=== PATIENT | female | born 1935 | race African-American/Black ===

== ENCOUNTER 2018-10-14 11:30 | Observation (INO) ==
[2018-10-14 14:16] LABS: Apearance,Urine CLEAR (Clear); Bilirubin,Urine Negative (Negative); Blood, Urine Negative (Negative); Glucose,Urine (UA) Negative (Negative); Ketones,Urine Negative (Negative); Mucus,Urine Occasional /LPF (Occasional); Nitrite,Urine Negative (Negative); Protein,Urine Negative; RBC,Urine 1 /HPF (0-4); Squamous Epithelial Cell,Urine Occasional /HPF (0-10); Urine Color Straw (Yellow); Urine Specific Gravity 1.011 (1.001-1.035); Urine Urobilinogen < 2.0 EU/DL (0.2-1.0)
[2018-10-14 14:33] LABS: Basophils % 0.3 % (0.0-0.8); Eosinophils # 0.1 10*3/uL (0.0-0.87); Hemoglobin 13.7 GM/DL (12.0-16.0); Immature Granulocytes % 0.3 %; Immature Granulocytes Absolute 0.02 #; Lymphocytes # 1.7 10*3/uL (1.4-4.0); Lymphocytes % 27.6 % (21.3-54.2); Mean Corpuscular HGB Conc 31.9 GM/DL (32-36); Mean Corpuscular Hemoglobin 29 PG (27-34); Mean Corpuscular Volume 92.1 FL (87-102); Mean Platelet Volume 11.1 FL (9.6-12.0); Monocytes # 0.5 10*3/uL (0.11-0.8); Monocytes % 7.7 % (1.7-12.7); Neutrophils # 3.8 10*3/uL (1.4-7.4); Neutrophils % 63.1 % (38.7-73.9); Platelet Count 314 T/CUMM (130-400); Red Blood Count 4.67 MC/CUMM (3.8-5.5); Red Cell Distribution Width 16.3 % (9.3-17.3); White Blood Count 6.1 T/CUMM (4-12)
[2018-10-14 14:57] LABS: Albumin 4.4 G/DL (3.4-5.0); Bilirubin,Total 0.7 MG/DL (0.2-1.0); Calcium 9.7 MG/DL (8.5-10.1); Osmolality,Calculated 276.7 MOS/KG (273-304); Potassium 5.1 MMOL/L (3.5-5.1); Thyroid Stimulating Hormone 3.31 uIU/ml (0.358-3.74); Total Protein 8.2 G/DL (6.4-8.3)
[2018-10-14] MEDS ORDERED: ONDANSETRON 4 MG/2 ML VIAL IV PRN (17:57)
[2018-10-14] MEDS ORDERED: ACETAMINOPHEN 325 MG TABLET PO PRN (17:57)
[2018-10-15 05:54] LABS: Basophils % 0.6 % (0.0-0.8); Eosinophils # 0.1 10*3/uL (0.0-0.87); Eosinophils % 1.5 % (0.00-10.9); Hematocrit 36.5 VOL% (35.7-47.0); Immature Granulocytes % 0.4 %; Immature Granulocytes Absolute 0.02 #; Lymphocytes # 1.7 10*3/uL (1.4-4.0); Lymphocytes % 31.6 % (21.3-54.2); Mean Corpuscular HGB Conc 31.8 GM/DL (32-36); Mean Corpuscular Hemoglobin 29 PG (27-34); Mean Corpuscular Volume 90.3 FL (87-102); Mean Platelet Volume 10.4 FL (9.6-12.0); Monocytes # 0.6 10*3/uL (0.11-0.8); Monocytes % 10.1 % (1.7-12.7); Neutrophils # 3.1 10*3/uL (1.4-7.4); Neutrophils % 55.8 % (38.7-73.9); Platelet Count 299 T/CUMM (130-400); Red Blood Count 4.04 MC/CUMM (3.8-5.5); Red Cell Distribution Width 15.9 % (9.3-17.3); White Blood Count 5.5 T/CUMM (4-12)
[2018-10-15 05:55] LABS: Hemoglobin 11.6 GM/DL (12.0-16.0)
[2018-10-15 06:04] LABS: Calcium 9.6 MG/DL (8.5-10.1); Osmolality,Calculated 284.3 MOS/KG (273-304)
[2018-10-15 06:08] LABS: Risk Ratio 2.67; VLDL CHOLESTEROL 29.6 MG/DL
[2018-10-15] MEDS ORDERED: POTASSIUM CHLORIDE 20 MEQ TABLET PO SCH (08:00)
[2018-10-15] MEDS ORDERED: ASPIRIN EC 81 MG TABLET PO SCH (09:00)
[2018-10-15] MEDS ORDERED: OMEGA 3 ACID ETHYL ESTERS 1 GM CAPSULE PO SCH (09:00)
[2018-10-15] MEDS ORDERED: CYANOCOBALAMIN 500 MCG TABLET PO SCH (09:00)
[2018-10-15] MEDS ORDERED: PANTOPRAZOLE 40 MG TABLET PO SCH (09:00)
[2018-10-15] MEDS ORDERED: COENZYME Q10 100 MG CAPSULE PO SCH (09:00)
[2018-10-15] MEDS ORDERED: LISINOPRIL 5 MG TABLET PO SCH (09:00)
[2018-10-15] MEDS ORDERED: ATORVASTATIN 80 MG TABLET PO SCH (09:00)
[2018-10-15] MEDS ORDERED: CITALOPRAM 20 MG TABLET PO SCH (09:00)
[2018-10-15] MEDS ORDERED: SPIRONOLACTONE 25 MG TABLET PO SCH (09:00)
[2018-10-15 12:12] VITALS: BP 93/53
== END 2018-10-15 14:25 | disposition home or self-care (01) ==
LOC: N.ED 11:30 → SUATTDRO 16:43 → N.EDINP 16:43 → INTOOBSV 16:43 → N.5E 17:47
PROVIDERS: ADMIT Internal Medicine Nephrology; ATTEND Hospitalist

== ENCOUNTER 2020-07-31 19:34 | Inpatient (IN) ==
[2020-07-31] MEDS ORDERED: MORPHINE 4 MG/1 ML VIAL IV PRN ×2 (20:29→23:16)
[2020-07-31] MEDS ORDERED: NITROGLYCERIN SL 0.4 MG TABLET SL PRN (20:29)
[2020-07-31 21:04] LABS: Basophils % 0.4 % (0.0-0.8); Eosinophils # 0.1 10*3/uL (0.0-0.87); Eosinophils % 1.6 % (0.00-10.9); Hematocrit 38.6 VOL% (35.7-47.0); Hemoglobin 12.5 GM/DL (12.0-16.0); Immature Granulocytes % 0.4 %; Immature Granulocytes Absolute 0.02 #; Lymphocytes # 1.7 10*3/uL (1.4-4.0); Lymphocytes % 34.6 % (21.3-54.2); Mean Corpuscular HGB Conc 32.4 GM/DL (32-36); Mean Corpuscular Volume 88.3 FL (87-102); Monocytes % 8.6 % (1.7-12.7); Neutrophils % 54.4 % (38.7-73.9); Platelet Count 339 T/CUMM (130-400); Red Blood Count 4.37 MC/CUMM (3.8-5.5); Red Cell Distribution Width 15.9 % (9.3-17.3); White Blood Count 4.9 T/CUMM (4-12)
[2020-07-31 21:27] LABS: Calcium 9.5 MG/DL (8.5-10.1); Osmolality,Calculated 283.8 MOS/KG (273-304)
[2020-07-31] MEDS ORDERED: GLUCAGON 1 MG VIAL IM PRN (23:16)
[2020-07-31] MEDS ORDERED: guaiFENesin/DM ER 600-30 MG TABLET PO PRN (23:16)
[2020-07-31] MEDS ORDERED: hydrALAZINE 20 MG/1 ML VIAL IV PRN (23:16)
[2020-07-31] MEDS ORDERED: ONDANSETRON 4 MG/2 ML VIAL IV PRN (23:16)
[2020-07-31] MEDS ORDERED: diphenhydrAMINE CAP 25 MG CAPSULE PO PRN (23:16)
[2020-07-31] MEDS ORDERED: ZALEPLON 5 MG CAPSULE PO PRN (23:16)
[2020-07-31] MEDS ORDERED: ACETAMINOPHEN 325 MG TABLET PO PRN (23:16)
[2020-07-31] MEDS ORDERED: NICOTINE 21 MG/24 HR PATCH TRANSDERM PRN (23:16)
[2020-07-31] MEDS ORDERED: DEXTROSE 50% 25 GM/50 ML VIAL IV PRN (23:16)
[2020-07-31] MEDS ORDERED: DOCUSATE SODIUM 100 MG CAPSULE PO PRN (23:16)
[2020-07-31] MEDS ORDERED: CLOPIDOGREL 300 MG TABLET PO ONE (23:20)
[2020-07-31] MEDS ORDERED: ERGOCALCIFEROL 50,000 UNIT CAPSULE PO SCH (23:30)
[2020-08-01] MEDS ORDERED: ENOXAPARIN 80 MG/0.8 ML SYRINGE SUBCUT SCH
[2020-08-01 01:13] LABS: Basophils % 0.7 % (0.0-0.8); Eosinophils # 0.1 10*3/uL (0.0-0.87); Eosinophils % 2.4 % (0.00-10.9); Hematocrit 35.4 VOL% (35.7-47.0); Hemoglobin 11.6 GM/DL (12.0-16.0); Immature Granulocytes % 0.2 %; Immature Granulocytes Absolute 0.01 #; Lymphocytes # 1.8 10*3/uL (1.4-4.0); Lymphocytes % 40.2 % (21.3-54.2); Mean Corpuscular HGB Conc 32.8 GM/DL (32-36); Mean Corpuscular Volume 88.3 FL (87-102); Mean Platelet Volume 10.3 FL (9.6-12.0); Monocytes % 9.9 % (1.7-12.7); Neutrophils % 46.6 % (38.7-73.9); Platelet Count 284 T/CUMM (130-400); Red Blood Count 4.01 MC/CUMM (3.8-5.5); Red Cell Distribution Width 15.9 % (9.3-17.3); White Blood Count 4.6 T/CUMM (4-12)
[2020-08-01 01:28] LABS: Calcium 8.8 MG/DL (8.5-10.1)
[2020-08-01] MEDS ORDERED: CLOPIDOGREL 300 MG TABLET PO ONE (06:00)
[2020-08-01] MEDS ORDERED: ASPIRIN EC 81 MG TABLET PO SCH (09:00)
[2020-08-01] MEDS ORDERED: CITALOPRAM 20 MG TABLET PO SCH (09:00)
[2020-08-01] MEDS ORDERED: SPIRONOLACTONE 25 MG TABLET PO SCH (09:00)
[2020-08-01] MEDS ORDERED: FATTY ACIDS PO SCH (09:00)
[2020-08-01] MEDS ORDERED: PANTOPRAZOLE 40 MG TABLET PO SCH (09:00)
[2020-08-01] MEDS ORDERED: OMEGA PO SCH (09:00)
[2020-08-01 16:01] VITALS: BP 125/72
[2020-08-01] MEDS ORDERED: DONEPEZIL 5 MG TABLET PO SCH (19:00)
[2020-08-02] MEDS ORDERED: ERGOCALCIFEROL 50,000 UNIT CAPSULE PO SCH (09:00)
== END 2020-08-01 17:24 | disposition home or self-care (01) | DRG 313 ==
LOC: N.TELEN 19:34
PROVIDERS: ADMIT Internal Medicine; ATTEND Internal Medicine